=== PATIENT | female | born 1945 | race Caucasian/White ===

== ENCOUNTER 2016-09-01 13:52 | Inpatient (IN) | payer OTHER ==
[~2016-09-01] VITALS: Ht 167.6 cm; Wt 64.6 kg
[~2016-09-01 13:52] MED LIST: APRESOLINE25 MG PO; ASPIR 8181 M1 PO; CIPRO500 MG PO; DILAUDID2 MG PO; EXCEDRIN EXTRA1 EACH PO; FLAGYL500 MG PO; HYDROCHLOROTHIA25 MG PO; LISINOPRIL10 MG PO; LISINOPRIL5 MG PO; METOPROLOL SUCC25 MG PO; MIRALAX17 GM PO; MULTIVITAMIN1 EAC2 PO; TRICOR145 MG PO; ZOFRAN4 MG PO
[2016-09-01] MEDS ORDERED: CRESTOR10 MG PO (14:32)
[2016-09-01 14:33] LABS: EOSINOPHIL (%) 2.7 % (0-5); EOSINOPHIL COUNT 0.1 K/uL (0-0.3); HEMATOCRIT 43.2 % (36.0-46.0); IMMATURE GRANULOCYTE (%) 0.4 % (0.0-0.7); INSTRUMENT ABS NEUTROPHIL CT 2.2 K/uL; LYMPHOCYTE COUNT 2.1 K/uL (1.0-2.8); MCH 30.8 PG (29.0-34.0); MCV 90.4 FL (83-99); MEAN PLAT.VOLUME 9.1 uM^3 (9.5-12.4); MONOCYTE (%) 8.2 % (3-12); MONOCYTE COUNT 0.4 K/uL (0-0.8); NEUTROPHIL (%) 45.5 % (45-76); NEUTROPHIL COUNT 2.2 K/uL (1.8-6.4); PLATELET COUNT 268 K/uL (156-360); RBC DIS.WIDTH-SD 43.2 % (39-53); RED BLOOD COUNT 4.78 M/uL (3.80-5.20); WHITE BLOOD COUNT 4.9 K/uL (4.1-10.2)
[2016-09-01] MEDS ORDERED: MELATONIN1 MG PO (14:34)
[2016-09-01 14:42] LABS: CHLORIDE 102 mEq/L (99-109); SODIUM 136 mEq/L (136-147)
[2016-09-01 14:43] LABS: GLUCOSE 115 mg/dL (70-99)
[2016-09-01 14:44] LABS: PROTHROMBIN TIME 9.9 (9.2-11.2); PTT 28.9 (25-32)
[2016-09-01 14:45] LABS: ANION GAP 12 MEQ/L (2-14)
[2016-09-01 14:47] LABS: GFR ESTIMATE (CALCULATED) > 59 mL/min/
[2016-09-01 14:48] LABS: UREA NITROGEN (BUN) 16 mg/dL (9-23)
[2016-09-01 15:46] LABS: ADD MIUA? YES; BILIRUBIN NEGATIVE; BLOOD NEGATIVE; COLOR YELLOW ((YELLOW)); GLUCOSE (STRIP) NEGATIVE; KETONES NEGATIVE; LEUKOCYTES NEGATIVE; NITRITE NEGATIVE; PROTEIN (STRIP) 30; SPECIFIC GRAVITY 1.011 (1.000-1.030); UROBILINOGEN 0.2 MG/DL (0.2-1.0)
[2016-09-01 15:58] LABS: BACTERIA NONE SEEN /HPF; EPITHELIAL CELLS RARE /HPF; MUCUS NONE SEEN /LPF; UCUL ADDED? NO; WHITE BLOOD CELLS 0-5 /HPF (0-5)
[2016-09-01 16:11] LABS: CRYSTALS PRESENT
[2016-09-01] MEDS ORDERED: PRINIVIL20 MG PO (17:23)
[2016-09-01] MEDS ORDERED: TOPROL XL25 MG PO (17:24)
[2016-09-01] MEDS ORDERED: ALLERGY RELIEF10 M5 PO (17:25)
[2016-09-01 20:48] VITALS: BP 159/86
[2016-09-02] VITALS (7 sets, daily range): BP systolic 112–165; BP diastolic 65–100
[2016-09-02 05:53] LABS: HEMATOCRIT 42.6 % (36.0-46.0); MCH 30.8 PG (29.0-34.0); MCHC 33.6 G/DL (30.0-36.0); MCV 91.6 FL (83-99); PLATELET COUNT 252 K/uL (156-360); RBC DIS.WIDTH-CV 13.1 % (11.8-14.6); RBC DIS.WIDTH-SD 44.1 % (39-53); RED BLOOD COUNT 4.65 M/uL (3.80-5.20); WHITE BLOOD COUNT 5.7 K/uL (4.1-10.2)
[2016-09-02 06:16] LABS: ANION GAP 9 MEQ/L (2-14); CHLORIDE 98 MEQ/L (99-109); GFR ESTIMATE (CALCULATED) > 59 mL/min/; GLUCOSE 91 mg/dL (70-99); HDL CHOLESTEROL 47 MG/DL (Desirable>=50); LDL CHOLESTEROL 86 mg/dL (Desirable<100); NON-HDL CHOLESTEROL 117 mg/dL (Desirable<160); POTASSIUM 4.1 MEQ/L (3.7-5.4); SAMPLE HEMOLYSIS CHECK 0; SAMPLE ICTERIC CHECK 0; SAMPLE LIPEMIA CHECK 0; SODIUM 134 MEQ/L (136-147); TOTAL CHOLESTEROL 164 mg/dL (Desirable<200); TRIGLYCERIDES 155 MG/DL (Normal: <150); UREA NITROGEN (BUN) 13 mg/dL (9-23)
[2016-09-02 08:42] LABS: Estimated Average Glucose 117 mg/dL (70-123); HEMOGLOBIN A1c (GLYCOHEMOGLOB) 5.7 % HGB (Below 5.7)
[2016-09-03 00:37] VITALS: BP 126/62
[2016-09-03 04:23] VITALS: BP 130/71
[2016-09-03 07:30] VITALS: BP 134/80
[2016-09-03 13:01] VITALS: BP 128/69
[2016-09-03] MEDS ORDERED: CLOPIDOGREL75 MG PO (15:33)
== END 2016-09-03 18:11 | disposition home or self-care (01) | DRG 74 ==
LOC: EME → EDBD 13:52 → 5SOUTH 16:51 → EDOF 16:51 → 5SOUTH 20:10
PROVIDERS: Emergency Medicine; Internal Medicine
DX: G58.9 Mononeuropathy, unspecified (principal); H53.2 Diplopia; R27.0 Ataxia, unspecified; B39.9 Histoplasmosis, unspecified; R33.9 Retention of urine, unspecified; I10 Essential (primary) hypertension; E78.5 Hyperlipidemia, unspecified; Z88.0 Allergy status to penicillin; Z88.5 Allergy status to narcotic agent; Z88.2 Allergy status to sulfonamides
CPT/HCPCS: 70450; 70551; 80048; 80061; 81003; 83036; 85025; 85027; 85610; 85730; 93005; 93306; 93880; 99281; 99285; J1650